=== PATIENT | female | born 1940 | race Caucasian/White ===

== ENCOUNTER 2016-11-01 18:12 | Emergency (ER) | payer MEDICARE, OTHER ==
--- NOTE | 2016-11-08 17:54 | ER ---
ADMIT: 11/01/2016 RM/LOC: ER [facility] MR#: [id number] [address] [id number] [address]A Kan [address] [place] [address] Emergency Room Report SEX: F AGE: 76 : 1940 DATE: 11/01/2016 ADDENDUM: A 76-year-old white female coming in with a kind of twisted her wrist, left hand. Kind of fell with it. We re-x-rayed this. This is negative as far as any fracture. She had fracture of this hand and wrist in the past. It was splinted with removable splint/brace that she can continue to use and then follow up if not improving. CONDITION ON DISCHARGE: Good. Mike Guerrier MD/ teofilo JOB #: [id number] CC: Mike Guerrier MD, Attending Physician Adry Fernandez MD, Family Physician
== END 2016-11-01 20:34 | disposition home or self-care (01) ==
LOC: ER 18:12
PROC: 2W3FX1Z Immobilization of Left Hand using Splint (ICD-10-PCS; principal; 2016-11-01)
DX: S63.502A Unspecified sprain of left wrist, initial encounter (principal); S66.912A Strain of unspecified muscle, fascia and tendon at wrist and hand level, left hand, initial encounter; J44.9 Chronic obstructive pulmonary disease, unspecified; Z79.899 Other long term (current) drug therapy; Z88.0 Allergy status to penicillin; Z91.040 Latex allergy status; X50.1XXA Overexertion from prolonged static or awkward postures, initial encounter; Y92.009 Unspecified place in unspecified non-institutional (private) residence as the place of occurrence of the external cause